=== PATIENT | female | born 1965 | race Caucasian/White ===

== ENCOUNTER 2022-06-17 15:46 | Emergency (ER) | payer BC ==
--- NOTE | 2022-06-17 15:58 | ED Physician Documentation ---
PD HPI DYSPNEA - Stated complaint Stated Complaint: SOA/ALLERGIC REACTION - Chief complaint Chief Complaint: Resp - History obtained from History obtained from: Patient - History of Present Illness Timing - onset: How many hours ago (1-2), Today Timing - onset during: Light activity (she was out in public area and a person was wearing very fragrant perfume, causing an asthma/wheezing episode in the patient. No hives nor swelling. So seems triggered bronchospasm as opposed to histamine mediated though patient says she does better with steroids and antihistamines with prior times.) Timing - duration: Hours (1-2) Timing - details: Abrupt onset, Still present Inciting event(s): Out of meds (usually would use ALbuterol MDI for this. Out of med. Here for neb treatment/Rx.) Improved by: Inhaler/neb Associated symptoms: Wheezing. No: Fever, Cough, Hemoptysis, Bilateral edema Similar symptoms before: Diagnosis (chemical sensitivity with astma/reactive airways.) Review of Systems Constitutional: denies: Fever, Chills Nose: denies: Rhinorrhea / runny nose, Congestion Throat: denies: Sore throat Cardiac: denies: Chest pain / pressure, Palpitations Respiratory: reports: Dyspnea, Wheezing. denies: Cough Skin: denies: Rash, Lesions Neurologic: denies: Near syncope PD PAST MEDICAL HISTORY - Past Medical History Cardiovascular: None Respiratory: Asthma Neuro: None Endocrine/Autoimmune: None - Present Medications Home Medications: Ambulatory Orders Medication Instructions Recorded Confirmed Albuterol Sulf [Ventolin Hfa 1 - 2 puffs INH Q4HR PRN #1 each 06/17/22 Inhaler] Cetirizine [ZyrTEC] 10 mg PO BID #15 tablet 06/17/22 dexAMETHasone [Decadron] 4 mg PO DAILY #5 tablet 06/17/22 - Allergies Allergies/Adverse Reactions: Allergies Allergy/AdvReac Type Severity Reaction Status Date / Time ketorolac [From Toradol] Allergy Anaphylaxis Verified 06/17/22 15:49 torsemide Allergy Respiratory Verified 06/17/22 15:49 PD ED PE NORMAL - Vitals Vital signs reviewed: Yes - General General: Alert and oriented X 3, Well developed/nourished, Other (appears in some distress with breathing, with tachypnea and decreased tidal volume. No accessory muscle use. Able to talk. ) - HEENT HEENT: Moist mucous membranes, Pharynx benign - Neck Neck: Supple, no meningeal sign, No adenopathy - Cardiac Cardiac: RRR (borderline tachycardic. ), No murmur - Respiratory Respiratory: No: Clear bilaterally (exp wheezing noted diffusely. No coarse sounds. ) - Abdomen Abdomen: Soft, Non tender - Derm Derm: Normal color, Warm and dry, No rash - Extremities Extremities: No edema, No calf tenderness / cord - Neuro Neuro: Alert and oriented X 3, No motor deficit, Normal speech Results - Vitals Vitals: Vital Signs - 24 hr 06/17/22 06/17/22 06/17/22 15:49 16:52 17:16 Temperature 36.5 C Heart Rate 100 114 H 116 H Respiratory 18 22 16 Rate Blood Pressure 180/90 H 211/87 H O2 Saturation 98 94 Oxygen O2 Source Room air PD Medical Decision Making - ED course Complexity details: re-evaluated patient (she is feeling better after nebulizer treatment. ), considered differential (seems RAD/asthma exac due to triggered ir ritation of perfume smell. She states treated in past with Albuterol and often short course steroids and anithistamines, seems to treat better and keep from being more prolonged improvement. ), d/w patient Departure - Departure Disposition: 01 Home, Self Care Clinical Impression: Exacerbation of asthma, Allergic reaction Condition: Stable Record reviewed to determine appropriate education?: Yes Prescriptions: Albuterol Sulf [Ventolin Hfa Inhaler] 1 - 2 puffs INH Q4HR PRN #1 each PRN Reason: Shortness Of Air/Wheezing dexAMETHasone [Decadron] 4 mg PO DAILY #5 tablet Cetirizine [ZyrTEC] 10 mg PO BID #15 tablet Comments: It is good that you are improved here with the nebulizer. I wrote a prescription for an albuterol inhaler so you will have 1 on hand. I would also suggest several days of dexamethasone steroid to help with airway inflammation related to the asthma flareup. Consider also cetirizine antihistamine once or twice daily for the next several days to week to help with the reaction as well. Stay well-hydrated. Continue your other usual medicines. Return if worsening. I sent your prescriptions to [facility] pharmacy. Discharge Date/Time: 06/17/22 17:26
[2022-06-17] MEDS ORDERED: DEXAMETHASONE 10 MG/ML VIAL PO STA (16:03)
[2022-06-17] MEDS ORDERED: ALBUTEROL NEB 2.5 MG/3 ML INH STA (16:03)
[2022-06-17] MEDS ORDERED: CETIRIZINE 10 MG TABLET PO STA (16:03)
[2022-06-17] MEDS ORDERED: CHERRY SYRUP 10 ML UDC PO ONE (16:03)
[2022-06-17 17:25] VITALS: BP 211/87
== END 2022-06-17 17:26 | disposition home or self-care (01) ==
LOC: ED 15:46
DX: T78.40XA Allergy, unspecified, initial encounter (principal); J45.901 Unspecified asthma with (acute) exacerbation
CPT/HCPCS: 94640; 94664; 99283; A9270

== ENCOUNTER 2022-07-30 07:56 | Outpatient (CLI) | payer BC ==
--- NOTE | 2022-07-30 15:56 | Ultrasound Report ---
PROCEDURE: Ankle Brachial Index INDICATIONS: BILATERAL LEG PAIN TECHNIQUE: Ankle-brachial indices were obtained bilaterally and recorded. COMPARISONS: None. FINDINGS: Right ankle brachial index (YULIYA): 1.1. Brachial pressure 160/86 and ankle pressure 189/80 Left ankle brachial index (YULIYA): 1.1 brachial pressure 153/71, ankle pressure 183/76. Healing potential: Ankle pressures >55 mm Hg in non-diabetics and >80 mm Hg in diabetics are likely to achieve primary h ealing of ischemic foot ulcers. Toe pressures >30 mm Hg are likely to achieve primary healing of ischemic foot ulcers, toe or transme tatarsal amputations. IMPRESSION: YULIYA as above, within normal limits. Reviewed by: Ariela Diallo MD on 07/30/2022 3:55 PM PDT Approved by: Ariela Diallo MD on 07/30/2022 3:55 PM PDT Station ID: [id number]
== END 2022-07-30 07:57 | disposition home or self-care (01) ==
LOC: DI 07:56
PROVIDERS: ATTEND Physician Assistant
DX: M79.604 Pain in right leg (principal); M79.605 Pain in left leg
CPT/HCPCS: 93922

== ENCOUNTER 2022-08-05 06:57 | Emergency (ER) | payer BC ==
--- NOTE | 2022-08-05 07:14 | ED Physician Documentation ---
PD HPI LOWER EXT INJURY - Stated complaint Stated Complaint: BILAT FOOT PX - Chief complaint Chief Complaint: Ext Problem - History obtained from History obtained from: Patient - History of Present Illness PD HPI LOW EXT INJURY LOCATION: Other (both feet, ankles, lower legs with tingling, burning, and sensitivity, with worse pain at times. 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 Pt has had trials of Duloxetine (side effects so stopped), Elavil (tried for couple months without improvement) for this. Has had improvement with Gabpentin but has had to increase doses and is at max/high dose now (2700 mg daily).) Review of Systems Skin: denies: Rash, Lesions Musculoskeletal: reports: Extremity swelling (will get edema in legs through the day.) Neurologic: reports: Numbness. denies: Focal weakness PD PAST MEDICAL HISTORY - Past Medical History Cardiovascular: None Respiratory: Asthma Neuro: None Endocrine/Autoimmune: Type 2 diabetes - Present Medications Home Medications: Ambulatory Orders Medication Instructions Recorded Confirmed Albuterol Sulf [Ventolin Hfa 1 - 2 puffs INH Q4HR PRN #1 each 06/17/22 Inhaler] Cetirizine [ZyrTEC] 10 mg PO BID #15 tablet 06/17/22 dexAMETHasone [Decadron] 4 mg PO DAILY #5 tablet 06/17/22 Alpha Lipoic Acid 600 mg PO DAILY #30 tablet 08/05/22 oxyCODONE [Roxicodone] 5 mg PO Q6H PRN #20 tablet 08/05/22 - Allergies Allergies/Adverse Reactions: Allergies Allergy/AdvReac Type Severity Reaction Status Date / Time ketorolac [From Toradol] Allergy Anaphylaxis Verified 08/05/22 07:12 torsemide Allergy Respiratory Verified 08/05/22 07:12 PD ED PE NORMAL - Vitals Vital signs reviewed: Yes - General General: Alert and oriented X 3, Well developed/nourished, Other (appears in pain due to lower legs.) - Derm Derm: Normal color, Warm and dry, Other (compression socks on, up to below knee. Left them on. Patient states no skin sores. ) - Extremities Extremities: No calf tenderness / cord - Neuro Neuro: Alert and oriented X 3, No motor deficit, Normal speech, Other (decreased sensation both feet/lower legs, but able to distinguish touch/pressure. Good movement of feet/toes. ) Results - Vitals Vitals: Vital Signs - 24 hr 08/05/22 07:10 Temperature 36.7 C Heart Rate 107 H Respiratory 19 Rate Blood Pressure 158/75 H O2 Saturation 99 Oxygen O2 Source Room air PD Medical Decision Making - ED course Complexity details: reviewed old records (she had outpt ABIs done few days ago, with normal results of YULIYA 1.1 in both lower estremities. ), considered differential (sounds like pain from neuropathy. Recent ABIs normal. No calf pain to palpation and no recent travel, etc. She describes some vasomotor type symptoms with cold/blue feet at times and exagerrated cold response (? Ca joshua). Has element of muscle pains too, and is on statin, which might contribute.) ED course: primary care has tried appropriate/good meds categories for neuropathy. Referencing UpToDate recommended after these to consider capsacian cream topical, alpha lipoic acid supplement, possibly B6 supplement, lido patch as adjuncts to the Gabapentin, TCA, SNRI meds. Pain meds not advised mcc, but I am script small amount for PRN/short term use given the degree of pain currently. Departure - Departure Disposition: 01 Home, Self Care Clinical Impression: Lower leg pain, Diabetic neuropathy Condition: Stable Record reviewed to determine appropriate education?: Yes Follow-Up: ARAMIS HOLLAND PA-C [Primary Care Provider] - Prescriptions: Alpha Lipoic Acid 600 mg PO DAILY #30 tablet oxyCODONE [Roxicodone] 5 mg PO Q6H PRN #20 tablet PRN Reason: Pain Comments: Continue with your gabapentin and other usual medicines. Add Tylenol 500 to 650 mg 4 times daily regularly for the next 7 to 10 days. To that add ibuprofen or naproxen occasionally if needed for pains. To that add oxycodone half to 1 tablet every 6 hours if needed for worse pain. It sounds like your provider has been trying appropriate medications with the duloxetine and amitriptyline to help with the neuropathy. Referencing up-to-date just now, other medications/supplements suggested could be topical capsaicin cream and also alpha lipoic acid may have some added benefit as well. Other considerations would be potential side effect to the cholesterol medicines ("statins") that can cause muscle aches and pains in the lower extremities in particular and also some neuropathy type symptoms. I would suggest holding off on your cholesterol medicine statin for a month or 2 and see if there is gene rally a difference. Regarding your cold feet and bluish color at times, sometimes it can be vasospasm. Discussed with your primary care potentially calcium joshua medications could be used for that. It will have an effect on your blood pressure to and sometimes can promote swelling in the legs so balancing effect and side effect. I sent your prescription to [facility] pharmacy. I am prescribing a short course of narcotic pain medication for you. These are potentially dangerous and addictive medications that should be used carefully. These medications may constipate you. Take an glal-jgl-eatexfe stool softener such as docusate twice daily with plenty of water while taking these medications. If you go 24 hours without a bowel movement, take [id number] MiraLAX, per package instructions. Do not drink or drive while taking these medications. If you received narcotic or sedating medications while in the emergency department do not drive for 24 hours. Store this medication in a safe, secure place and out of reach of children. It is a violation of federal law to give or sell this medication to another person or to use in a manner other than prescribed. The ED will not refill narcotic prescriptions, including prescriptions lost or stolen. You can dispose of unwanted medications at the [facility]'s office or at several pharmacies such as [facility].
[2022-08-05] MEDS ORDERED: ACETAMINOPHEN 500 MG TABLET PO STA (07:42)
[2022-08-05 08:14] VITALS: BP 139/76
== END 2022-08-05 08:14 | disposition home or self-care (01) ==
LOC: ED 06:57
DX: E11.42 Type 2 diabetes mellitus with diabetic polyneuropathy (principal)
CPT/HCPCS: 99282; 99283; A9270

== ENCOUNTER 2022-09-03 11:09 | Outpatient (CLI) | payer BC ==
--- NOTE | 2022-09-03 11:49 | Sleep Patient Instructions ---
Sleep Center Visit Summary - Patient Visit Information Reason for Visit: Initial consult for evaluation of sleep disordered breathing and other sleep issues. - Patient Instructions Instructions Attached: Sleep Study, Sleep Clinic Visit, Sleep Study Home Monitor Additional Instructions: You will be completing a sleep study, either an in-lab polysomnography (PSG) or home sleep study (HST). You will follow-up in the sleep care office after the sleep study is completed to hear the results and talk about therapy, if needed. You will be called by our office staff to schedule this appointment, but you may contact us with any questions. - Clinic Information Contact: [facility] [address] [place] [address] [email or web address] T: [phone]
--- NOTE | 2022-09-03 12:02 | SLEEP CARE CONSULTATION ---
Information from patient questionnaire entered by Radha Bentley. I have reviewed and concur with the information entered by Radha Bentley. This document represents the service I personally performed and the decisions made by me, Latosha Mann ARNP. History of Present Illness Service Date and Time: 09/03/2022 1109 Reason for Visit: New patient Chief Complaint: reports: Insomnia, Unrefreshed sleep, Excessive daytime sleepiness, Fatigue Date of Onset: INSOMNIA 20YRS OTHERS 1YR Usual bedtime: 10-11PM, lays down Time it takes to fall asleep: 1-2HRS Snores at night: No (only if congested) Observed to quit breathing while asleep: No Sleeps alone due to snoring: No Number of times waking at night: 1-2 Reasons for waking at night: reports: Pain, Other (UNKNOWN; tossing and turning). denies: Choking, Snoring, Gasping for air Toss, Turn, or Twitch while sleeping: Yes Recalls having dreams: Yes Usually gets out of bed at: 515 AM Feels refreshed in the morning: No Morning headache: Yes (1-2 times a week; last couple hours, will take tylenol if bad) Sleepy or fatigued during the day: Yes Ever fallen asleep while driving: Yes (some drowsy driving; no accidents) Takes day naps: Yes (20 mins on lunch break on work days; off work 1-2 hours) Dreams during day naps: No Prior sleep studies: No Additional HPI information: I had the pleasure of seeing EDUARDO PALM today regarding the possibility of her having a sleep disorder. Her current complaints are excessive daytime sleepiness, fatigue, insomnia and unrefreshed sleep. She states she is tired all the time. She states in the past she has had insomnia where she could not fall asleep until later in the evening and she has always been a night person. She will still take 1-2 hours to fall asleep after laying down. She then wakes up 1- 2 times a night, mostly due to pain in legs or physical discomfort. She moves a lot at night and will wake up with her blankets and pillows "all over the room". She states she moved here to help her mother who has early Alzheimer's dementia and that this has increased her stress. She is also working. She states recently she just cannot wake up feeling rested and is tired throughout the day. She states she has never been told that she snores unless she is congested. She has never been told that she has any pauses in breathing. She does talk in her sleep and recently started walking in her sleep. She states she has not left the room but has found herself in the closet or in a corner of her bedroom. She also has had sleep paralysis once or twice a year. She deals with a lot of pain and paresthesias in both of her legs after spinal fusion surgery x2. Her legs are restless throughout the day and get very cold at night. She has to wear 2 pairs of socks and uses a heated blanket, even in the summer, to keep her legs and feet warm. - Parasomnia Symptoms Ever been unable to move upon waking from sleep: Yes (couple times as youth after vivid dreaming; 1-2 times year now) Walks in sleep: Yes (1st time in last year, did not leave room) Talks in sleep: Yes Ever acted out dreams in sleep: No (don't know; does kick covers off from moving a lot at night) Ever felt weak in the knees when startled or emotional: No Bothered by creepy, crawly, restless sensations in legs: Yes (legs/feet discomfort - daily during the day too) Problems with memory or concentration: Yes (memory more recently) Subjective Initial [place] Sleepiness Scale score: 10 (09/03/22) Past Medical History Past Medical History: reports: Hypertension, Diabetes, Insulin resistance, Asthma, Depression, Other (back fusion and then redo) Social History 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 Patient is Single and lives in . Have you smoked in the past 12 months: No Years of smokin Quit date: 1992 Alcohol use: Yes Alcohol amount and frequency: VERY RARELY Caffeine use: Yes Caffeine amount and frequency: 1-2 sodas DAY Family History Family history of sleep disordered breathing: No Allergies and Home Medications Known drug allergies: Yes (ketorolac, torsemide) Drug allergies reviewed: Yes Home medication list reviewed: Yes (see updated list in EMR) Allergy and home medication list: Allergies ketorolac [From Toradol] Allergy (Verified 09/02/22 15:05) Anaphylaxis torsemide Allergy (Verified 09/02/22 15:05) Respiratory Review of Systems Weight gain over past 5 years: 7-10 Cardiovascular: reports: high blood pressure Gastrointestinal: reports: nausea, diarrhea. denies: heartburn Psychiatric: denies: anxiety, depression Ear/Nose/Throat: reports: nasal congestion, sinus problems, dry mouth/throat, wisdom teeth removed. denies: tonsillectomy Endocrine: reports: sluggishness, excessive thirst Musculoskeletal: reports: joint pain, back pain, muscle pain or cramping Immunologic: reports: sneezing, itching Physical Exam Vital signs obtained and entered by: RADHA De Jesus MA Blood Pressure: 138/82 (LEFT ARM) Cuff size: regular Heart Rate: 112 O2 Saturation: 97 Height: 5 ft 6 in Weight: 237 lb 3.2 oz Body Mass Index: 38.2 BMI Classification: Obese Neck circumference: 16.75 Mouth and throat: narrow oropharynx Soft palate: long Hard palate: normal Uvula: normal Uvula visualization: 25% Mallampati Class III Tongue: enlarged in size with teeth zapata on lateral edges Tonsils: small Neck: normal w/o lymphadenopathy or thyromegaly Heart: regular rate and rhythm Lungs: clear bilaterally Impression and Plan 1. Suspected Obstructive Sleep Apnea-Hypopnea Syndrome, as suggested by a history of insomnia, morning headache, unrefreshed sleep, cognitive impairment, and excessive daytime sleepiness. Narrow oropharynx and obesity are common predisposing factors for obstructive sleep apnea-hypopnea syndrome. I recommend proceeding to polysomnography to confirm the diagnosis and to assess severity. If the patient has significant sleep disordered breathing, a manual CPAP titration study will also be performed to find the optimal treatment pressure. I informed the patient of what the sleep studies involve and after some discussion, obtained agreement to proceed. The pathophysiology of obstructive sleep apnea-hypopnea syndrome was discussed with the patient and health risks of cardiovascular and cerebrovascular disease if not treated. Risks of drowsy driving discussed in detail and patient advised to avoid long distance driving and to pullman car repairer at the first sign of drowsiness. Patient agreed to plan. * Schedule polysomnography . * Avoid long distance driving or driving when feeling sleepy. * Avoid alcohol, sedative and muscle relaxant around bedtime. * Attempt to lose weight. * Review instructions provided by trained office staff on how to prepare for the sleep study. * Return for follow-up after sleep study completed. Counseling Topics: Weight loss health impact Visit Type: In Office Time Spent with Patient (minutes): 33 Provider Statement: I spent 100% of the Face to Face Visit with the patient with greater than 50% spent counseling the patient and coordination of care.
[2022-09-03 12:06] VITALS: BP 138/82
== END 2022-09-03 11:10 | disposition home or self-care (01) ==
LOC: SC 11:09
PROVIDERS: ATTEND Nurse Practitioner Family
DX: G47.10 Hypersomnia, unspecified (principal); G47.00 Insomnia, unspecified; R51.9 Headache, unspecified; G47.8 Other sleep disorders; R41.89 Other symptoms and signs involving cognitive functions and awareness; E66.9 Obesity, unspecified; Z68.38 Body mass index [BMI] 38.0-38.9, adult; G25.81 Restless legs syndrome; Z87.891 Personal history of nicotine dependence
CPT/HCPCS: 99203; 99212

== ENCOUNTER 2022-11-24 07:38 | Outpatient (CLI) | payer BC | END 2022-11-24 23:59 | disposition critical access hospital (66) | LOC: EMS 07:38 | DX: R42 Dizziness and giddiness (principal); R11.0 Nausea; R51.9 Headache, unspecified | CPT/HCPCS: A0425; A0427 ==

== ENCOUNTER 2022-11-24 08:23 | Emergency (ER) | payer BC ==
[2022-11-24 08:40] VITALS: BP 161/83; O2SAT 95
[2022-11-24] MEDS ORDERED: ONDANSETRON 4 MG/2 ML VIAL IVP STA (08:47)
[2022-11-24] MEDS ORDERED: SODIUM CHLORIDE 0.9% 1,000 ML IV STA (08:47)
[2022-11-24] MEDS ORDERED: MECLIZINE 12.5 MG TABLET PO STA (08:48)
[2022-11-24 09:10] LABS: BASOPHILS # (AUTO) 0.1 10^3/uL (0.0-0.1); BASOPHILS % (AUTO) 1.3 %; EOSINOPHILS # (AUTO) 0.2 10^3/uL (0.0-0.7); EOSINOPHILS % (AUTO) 2.3 %; HCT - HEMATOCRIT 42.1 % (37.0-47.0); HGB - HEMOGLOBIN 13.2 g/dL (12.0-16.0); LYMPHOCYTES # (AUTO) 2.9 10^3/uL (1.5-3.5); LYMPHOCYTES % (AUTO) 32.1 %; MEAN CORPUSCULAR HEMOGLOBIN 26.5 pg (27.0-31.0); MEAN CORPUSCULAR HGB CONC 31.4 g/dL (32.0-36.0); MEAN CORPUSCULAR VOLUME 84.4 fL (81.0-99.0); MEAN PLATELET VOLUME 10.2 fL (7.9-10.8); MONOCYTES # (AUTO) 0.6 10^3/uL (0.0-1.0); NEUTROPHILS # (AUTO) 5.1 10^3/uL (1.5-6.6); PLT - PLATELET COUNT 432 10^3/uL (130-450); RED BLOOD COUNT 4.99 10^6/uL (4.20-5.40); RED CELL DISTRIBUTION WIDTH 13.7 % (12.0-15.0)
[2022-11-24 09:26] LABS: ALBUMIN/GLOBULIN RATIO 1.7 (1.0-2.2); BILIRUBIN,TOTAL 0.3 mg/dL (0.2-1.0); CALCIUM 9.7 mg/dL (8.5-10.3); CREATININE 0.6 mg/dL (0.6-1.3); POTASSIUM 4.1 mmol/L (3.5-4.5); TOTAL PROTEIN 6.4 g/dL (6.4-8.9)
--- NOTE | 2022-11-24 09:26 | ED Physician Documentation ---
History of Present Illness - Stated complaint Stated Complaint: DIZZY/NAUSEA - Chief complaint Chief Complaint: Neuro - History obtained from History obtained from: Patient - Additonal information Additional information: Patient is a 57-year-old female with a history of hypertension and diabetes presenting for evaluation of dizziness with nausea. Patient reports feeling room spinning sensation and off-balance starting around 730 last night as she was on the phone with a customer service advocate. She reports associated nausea but no vomiting. She has had a right-sided headache for the past 10 days that feels like a lot of pressure. She denies any head injury and does not take a blood thinner. No recent illness. Denies fever, chest pain, shortness of air or abdominal symptoms. Denies numbness or weakness in her arms or legs. Denies a prior history of vertigo. Review of Systems Constitutional: denies: Fever Cardiac: denies: Chest pain / pressure Respiratory: denies: Dyspnea GI: reports: Nausea. denies: Abdominal Pain, Vomiting, Diarrhea Musculoskeletal: denies: Back pain Neurologic: reports: Headache. denies: Syncope PD PAST MEDICAL HISTORY - Past Medical History Cardiovascular: None Respiratory: Asthma Neuro: None Endocrine/Autoimmune: Type 2 diabetes - Past Surgical History Past Surgical History: No - Present Medications Home Medications: Ambulatory Orders Medication Instructions Recorded Confirmed Albuterol Sulf [Ventolin Hfa 1 - 2 puffs INH Q4HR PRN #1 each 06/17/22 09/03/22 Inhaler] Albuterol Sulf [Ventolin Hfa See Rx Instructions .ROUTE .COMPLEX 09/03/22 09/03/22 Inhaler] Aspirin [[place]az[place]] See Rx Instructions .ROUTE .COMPLEX 09/03/22 09/03/22 Gabapentin [Neurontin] See Rx Instructions .ROUTE .COMPLEX 09/03/22 09/03/22 Losartan [Cozaar] See Rx Instructions .ROUTE .COMPLEX 09/03/22 09/03/22 Metformin HCl [Metformin ER See Rx Instructions .ROUTE .COMPLEX 09/03/22 09/03/22 Gastric] diphenhydrAMINE [Benadryl] See Rx Instructions .ROUTE .COMPLEX 09/03/22 09/03/22 Meclizine HCl [Motion Sickness] 25 mg PO Q6H PRN #20 tablet 11/24/22 Ondansetron Odt [Zofran] 4 mg TL Q6H PRN #10 tablet 11/24/22 - Allergies Allergies/Adverse Reactions: Allergies Allergy/AdvReac Type Severity Reaction Status Date / Time ketorolac [From Toradol] Allergy Anaphylaxis Verified 09/03/22 11:14 torsemide Allergy Respiratory Verified 09/03/22 11:14 - Social History Does the pt smoke?: No Smoking Status: Never smoker Does the pt drink ETOH?: No Does the pt have substance abuse?: No - Immunizations Immunizations are current?: Yes PD ED PE NORMAL - General General: Alert and oriented X 3, No acute distress, Well developed/nourished, Other - HEENT HEENT: Atraumatic, PERRL, EOMI, Moist mucous membranes, Pharynx benign - Neck Neck: Supple, no meningeal sign - Cardiac Cardiac: RRR, No murmur - Respiratory Respiratory: No respiratory distress, Clear bilaterally - Abdomen Abdomen: Soft, Non tender, Non distended - Derm Derm: Warm and dry - Neuro Neuro: Alert and oriented X 3, portfolio administrator 2-12 intact, No motor deficit, No sensory deficit, Normal speech, Other (Normal dqtqgr-[id number] bilaterally) Results - Vitals Vitals: Vital Signs - 24 hr 11/24/22 08:31 Temperature 37 C Heart Rate 88 Respiratory 18 Rate Blood Pressure 161/83 H O2 Saturation 95 Oxygen O2 Source Room air - EKG (time done) 0918 EKG releavant findings:: EKG personally interpreted by author of this note. Relevant findings are: Rate 83, normal sinus rhythm, PVCs, no STEMI, T wave inversions in lateral leads - Labs Labs: Laboratory Tests 11/24/22 11/24/22 09:05 09:05 WBC 9.0 RBC 4.99 Hgb 13.2 Hct 42.1 MCV 84.4 MCH 26.5 L MCHC 31.4 L RDW 13.7 Plt Count 432 MPV 10.2 Neut # (Auto) 5.1 Lymph # (Auto) 2.9 Mccone # (Auto) 0.6 Eos # (Auto) 0.2 Baso # (Auto) 0.1 Absolute Nucleated RBC 0.00 Nucleated RBC % 0.0 Sodium 141 Potassium 4.1 Chloride 106 Carbon Dioxide 28 Anion Gap 7.0 BUN 9 Creatinine 0.6 Estimated GFR (MDRD) 103 Glucose 112 H Calcium 9.7 Total Bilirubin 0.3 AST 16 ALT 17 Alkaline Phosphatase 56 Total Protein 6.4 Albumin 4.0 Globulin 2.4 Albumin/Globulin Ratio 1.7 Lipase 18 PD Medical Decision Making - ED course Complexity details: reviewed results, re-evaluated patient, d/w patient ED course: Patient is a 57-year-old female presenting for evaluation of vertigo symptoms a long with a headache. Vertigo started last night, headache has been present for 10 days. Nonfocal neuro exam. Normal [id number]. Vital signs appear stable. EKG is reviewed and nonischemic. No chest pain to suggest ACS. CBC, chemistries were obtained and reviewed. Given history of hypertension and diabetes she does have some risk factors for stroke so CT angio head and neck were obtained. There is no signs of intracranial hemorrhage or large vessel occlusion or stenosis.No nuchal rigidity to suggest subarachnoid hemorrhage. Patient was given IV fluids, Zofran and meclizine with some improvement in her symptoms but still ongoing dizziness. Therefore an MRI was ordered which is negative for a stroke. Patient feeling better after Valium and is able to ambulate. Suspect that her vertigo is from a peripheral etiology. Discussed continued treatment plan as well as need for follow-up with primary care provider. Patient is counseled on concerning symptoms to return for. Departure - Departure Disposition: 01 Home, Self Care Clinical Impression: Vertigo, Headache, Thyroid enlargement Condition: Stable Instructions: ED Headache Migraine, ED Vertigo Unspecified Prescriptions: Meclizine HCl [Motion Sickness] 25 mg PO Q6H PRN #20 tablet PRN Reason: Dizziness Ondansetron Odt [Zofran] 4 mg TL Q6H PRN #10 tablet PRN Reason: Nausea / Vomiting Comments: You were evaluated today for vertigo-like symptoms. Because of your history of hypertension and diabetes we did also evaluate you for a stroke with CT scan and MRIs. At this time there is no signs of a stroke as the cause of your symptoms. There was an incidental finding on your CT scan showing a mildly enlarged thyroid gland that needs follow-up with an outpatient ultrasound. I am sending prescriptions for medications to help you with your vertigo to [facility] in [place]. Please return to the emergency department with any worsening symptoms. You need an outpatient ultrasound to evaluate for a mildly enlarged thyroid gland. Incidentally noted is mildly enlarged thyroid gland with heterogeneous enhancement which could represent nodular goiter. Outpatient ultrasound thyroid follow-up is recommended. Forms: PCP List, Activity restrictions Discharge Date/Time: 11/24/22 13:23
--- NOTE | 2022-11-24 10:37 | CT Report ---
PROCEDURE: CT Angio Head/Neck INDICATIONS: R sided headache 10 days/ dizzy > 12 hrs TECHNIQUE: After the administration of intravenous contrast, 1 mm thick sections acquired from the aortic arch t hrough the [place]. 3-dimensional vfeikkb-rxhkiehwf-gwwbplixbm (MIP) and/or volume renderin g reformats were acquired of the central intracranial vasculature and neck separately. For radiation dose reduction, the following was used: automated exposure control, adjustment of mA and/or kV acco rding to patient size. COMPARISON: None. FINDINGS: Image quality: Diagnostic. HEAD CT: CSF Spaces: Basal cisterns are patent. No extra-axial fluid collections. Ventricles are normal in size and shape. Brain: The brain is within normal limits for age and scanning technique. No area of abnormal intrao sseous enhancement is seen. Skull and face: Calvarium and visualized facial bones appear intact, without suspicious lesions. Sinuses: Visualized sinuses and mastoids are clear. HEAD CT ANGIOGRAPHY: Anterior circulation: Intracranial internal carotid arteries are normal in size and flow. The flow within the paired anterior cerebral arteries is normal and symmetric. The flow within the middle cer ebral arteries is normal and symmetric. The anterior communicating artery is seen. No aneurysms are seen. Posterior circulation: Visualized portions of the vertebral arteries demonstrate normal caliber, and join to form a normal appearing basilar artery. Flow within the posterior cerebral arteries is norm al and symmetric. No aneurysms are seen. NECK CT ANGIOGRAPHY: Carotid system: The great vessels demonstrate a conventional anatomy as they arise from the aortic a rch. The origins of the common carotid arteries appear patent. The common carotid arteries demonstr ate normal caliber and courses. The bifurcation regions are both widely patent. The internal caroti d arteries demonstrate normal calibers and courses. Posterior circulation: The origins of the vertebral arteries both appear widely patent. The more childs perior extracranial portions of both vertebral arteries also demonstrate normal courses and calibers. They join to form a normal appearing basilar artery. Soft tissues: Visualized neck soft tissues demonstrate no suspicious abnormalities. Thyroid gland i s mildly enlarged and show heterogeneous contrast enhancement. Bones: No suspicious bony lesions. Visualized cervical spine appears normally aligned. IMPRESSION: 1. No CT evidence of acute intracranial bleed, midline shift or mass effect. No area of abnormal intr acranial enhancement. 2. No hemodynamically significant stenosis or aneurysm is seen in the intracranial circulation. 3. No hemodynamically significant stenosis or aneurysm is seen in bilateral neck arteries. 4. Incidentally noted is mildly enlarged thyroid gland with heterogeneous enhancement which could rep resent nodular goiter. Outpatient ultrasound thyroid follow-up is recommended. The estimate of stenosis included in the report of the imaging study was calculated using the NASCET method Reviewed by: Gordy Lehman MD on 11/24/2022 10:35 AM PDT Approved by: Gordy Lehman MD on 11/24/2022 10:35 AM PDT Station ID: [id number]
[2022-11-24] MEDS ORDERED: diazePAM 5 MG TABLET PO STA (10:52)
[2022-11-24] MEDS ORDERED: ACETAMINOPHEN 500 MG TABLET PO STA (10:53)
--- NOTE | 2022-11-24 12:38 | MRI Report ---
PROCEDURE: BRAIN WO INDICATIONS: intractable dizziness TECHNIQUE: Noncontrast axial T1 spin echo, axial T2 fast spin echo, sagittal and axial FLAIR, coronal T2 fast sp in echo, axial gradient echo, axial diffusion and ADC through the brain. COMPARISON: CTA head and neck dated 11/24/2022. FINDINGS: Image quality: Excellent. CSF Spaces: Basal cisterns are patent. No extra-axial fluid collections. Ventricles are normal in size and shape. Brain: No intracranial masses or hemorrhage. Hay/white matter interface is normal. Brainstem appe ars normal. Diffusion-weighted images demonstrate no acute ischemic insult. No chronic ischemic ins ults. There are very minimal tiny foci of increased T2 signal noted in deep white matter structures. Normal intravascular flow voids are present. Skull and face: Calvarium has normal marrow signal. Orbits appear normal. Sinuses: Sinuses and mastoids are clear. IMPRESSION: Negative brain MRI for patient age. No acute intracranial process. Reviewed by: Arias Portillo MD on 11/24/2022 12:36 PM PDT Approved by: Arias Portillo MD on 11/24/2022 12:36 PM PDT Station ID: [id number]
[2022-11-24] MEDS ORDERED: iohexoL-300 100 ML VIAL IVP ONE (13:08)
== END 2022-11-24 13:23 | disposition home or self-care (01) ==
LOC: EDUNIT# → SUPCPDRO 08:23 → ED 08:23
DX: R42 Dizziness and giddiness (principal); R51.9 Headache, unspecified; E04.9 Nontoxic goiter, unspecified; I10 Essential (primary) hypertension; E11.9 Type 2 diabetes mellitus without complications; Z79.84 Long term (current) use of oral hypoglycemic drugs
CPT/HCPCS: 36415; 70496; 70498; 70551; 80053; 83690; 85025; 93005; 96374; 99284; A9270; Q9967

== ENCOUNTER 2022-12-10 14:24 | Outpatient (CLI) | payer BC ==
--- NOTE | 2022-12-10 16:43 | Ultrasound Report ---
PROCEDURE: Head or Neck Soft Tissue INDICATIONS: GOITER TECHNIQUE: Real-time scanning was performed of the thyroid gland, with image documentation. COMPARISON: None FINDINGS: Right: Thyroid lobe measures 4.7 x 2.0 x 2.1 cm, and is heterogeneous in echotexture. Left: Thyroid lobe measures 5.4 x 2.0 x 2.0 cm, and is heterogeneous in echotexture. Isthmus: 5 mm thick. Nodule number: One Location: Right midpole Size: 1.2 cm. Composition: Predominantly solid. Echogenicity: Hypoechoic. Shape: wider than tall (0 points). Margins: Ill-defined. Echogenic foci: None (0 points). Total points: 4 ACR TI-RADS category: 4 Nodule number: Two Location: Right inferior pole Size: 1.0 cm. Composition: Solid. Echogenicity: Hypoechoic. Shape: wider than tall (0 points). Margins: Smooth (0 points). Echogenic foci: Macrocalcifications. Total points: 5 ACR TI-RADS category: 4 Nodule number: Three Location: Left lower pole Size: 0.9 cm. Composition: Solid. Echogenicity: Mixed. Shape: wider than tall (0 points). Margins: Smooth (0 points). Echogenic foci: None (0 points). Total points: 3 ACR TI-RADS category: 3 Nodule number: Four Location: Left midpole Size: 1.7 x 2.3 x 1.4 cm. Composition: Solid. Echogenicity: Isoechoic to hypoechoic. Shape: wider than tall (0 points). Margins: Ill-defined. Echogenic foci: Punctate. Total points: 6 ACR TI-RADS category: 4 IMPRESSION: 1. Heterogeneous thyroid gland with several nodules. 2. Given ACR criteria, several nodules are moderately suspicious. FNA is recommended of nodule #4. ACR TI-RADS definitions and recommendations: TI-RADS 1 (benign): 0 points. FNA not needed. TI-RADS 2 (not suspicious): 2 points. FNA not needed. TI-RADS 3 (mildly suspicious): 3 points. "FNA if 2.5 cm or larger, follow up if 1.5 cm or larger (at 1, 3, and 5 years). TI-RADS 4 (moderately suspicious): 4-6 points. "FNA if 1.5 cm or larger, follow up if 1 cm or larger (at 1, 2, 3, and 5 years). TI-RADS 5 (highly suspicious): 7 points or more. "FNA if 1 cm or larger, follow up if 0.5 cm or larger (every year for 5 years). Reviewed by: Cici Yoder MD on 12/10/2022 4:41 PM PDT Approved by: Cici Yoder MD on 12/10/2022 4:41 PM PDT Station ID: [id number]
== END 2022-12-10 14:25 | disposition home or self-care (01) ==
LOC: DI 14:24
PROVIDERS: ATTEND Physician Assistant
DX: E04.2 Nontoxic multinodular goiter (principal)

== ENCOUNTER 2022-12-24 14:00 | Outpatient (CLI) | payer BC ==
[2022-12-24] MEDS ORDERED: LIDOCAINE-MPF 1% 5 ML VIAL ONE (14:22)
--- NOTE | 2022-12-24 16:56 | Ultrasound Report ---
PROCEDURE: FNA Bx w/US Gdn 1st Les INDICATIONS: THYROID NODULES TECHNIQUE: The indications, alternatives, benefits, risks, and complications of the procedure were explained to the patient. Written informed consent was obtained and placed in the chart. The area of interest wa s examined sonographically and a site was chosen for ultrasound guided percutaneous sampling. The sk in was prepared and draped in the usual fashion, and anesthetized with 1% lidocaine infiltrated from the skin down to the lesion. Multiple passes were then performed, with contents emptied into an appr [facility] pathology specimen container. A bandage was applied to the area of access at completion of t he study. COMPARISON: Thyroid ultrasound 12/10/2022. FINDINGS: Location(s) of lesion(s) sampled: Left thyroid nodule #4 on ultrasound 12/10/2022 Odon: 25 gauge hypodermic needles. Number of passes: 6 Medications: 1% lidocaine for local anaesthesia. Complications: None. IMPRESSION: Successful ultrasound-guided left thyroid nodule fine needle aspiration, with cytology results antonina varela Reviewed by: Eve Hassan MD on 12/24/2022 4:55 PM PST Approved by: Eve Hassan MD on 12/24/2022 4:55 PM PST Station ID: [id number]
[2022-12-24] MEDS ORDERED: LIDOCAINE-MPF 1% 5 ML VIAL TD ONE (17:29)
== END 2022-12-24 14:01 | disposition home or self-care (01) ==
LOC: DI 14:00
PROVIDERS: ATTEND Family Medicine
DX: E04.2 Nontoxic multinodular goiter (principal)
CPT/HCPCS: 10005

== ENCOUNTER 2023-05-03 17:45 | Outpatient (CLI) | payer BC | END 2023-05-03 17:46 | disposition home or self-care (01) | LOC: LAB 17:45 | PROVIDERS: ATTEND Physician Assistant | DX: E04.2 Nontoxic multinodular goiter (principal) | CPT/HCPCS: 36415; 84443 ==

== ENCOUNTER 2023-06-12 11:41 | Outpatient (CLI) | payer BC ==
--- NOTE | 2023-06-12 16:37 | Ultrasound Report ---
PROCEDURE: Soft Tissue Head or Neck INDICATIONS: RIGHT THYROID NODULE TECHNIQUE: Real-time scanning was performed of the thyroid gland, with image documentation. COMPARISON: 12/10/2022 FINDINGS: Right: Thyroid lobe measures 5.2 x 1.8 x 2.5 cm. Left: Thyroid lobe measures 5.6 x 1.8 x 2.2 cm Isthmus: 0.4 cm thick. Echotexture: Homogeneous. Nodule 1: Right mid region. 1.4 x 1.3 x 1 cm, slightly larger than prior. Solid and hypoechoic echote xture. TR 4. Follow-up is recommended. Nodule 2: Right inferior region. 1.3 x 0.9 x 1.1 cm, slightly larger than prior. Solid and hypoechoic with macrocalcifications. TR 4. Follow-up is recommended. Nodule 3: Left mid region. 1.8 x 1.4 x 1.6 cm, previously sampled (labeled as nodule #4). It is solid and hypoechoic with macrocalcifications. TR 4. Nodule 4: Left inferior region. 1.7 x 1.2 x 1.4 cm, more conspicuous than prior. It is solid and hypo echoic with macrocalcifications. TR 4. IMPRESSION: Follow-up is recommended for the right-sided nodules as described above. There are 2 left-sided nodule that meet criteria for sampling. Nodule 3 (previously labeled as #4) wa s sampled. Nodule 4 today is more conspicuous than prior and also meets criteria for sampling. ACR TI-RADS definitions and recommendations: TI-RADS 1 (benign): 0 points. FNA not needed. TI-RADS 2 (not suspicious): 2 points. FNA not needed. TI-RADS 3 (mildly suspicious): 3 points. "FNA if 2.5 cm or larger, follow up if 1.5 cm or larger (at 1, 3, and 5 years). TI-RADS 4 (moderately suspicious): 4-6 points. "FNA if 1.5 cm or larger, follow up if 1 cm or larger (at 1, 2, 3, and 5 years). TI-RADS 5 (highly suspicious): 7 points or more. "FNA if 1 cm or larger, follow up if 0.5 cm or larger (every year for 5 years). Reviewed by: Chandrakant Rosenthal MD on 06/12/2023 4:35 PM PDT Approved by: Chandrakant Rosenthal MD on 06/12/2023 4:35 PM PDT Station ID: [id number]
== END 2023-06-12 11:42 | disposition home or self-care (01) ==
LOC: DI 11:41
PROVIDERS: ATTEND Family Medicine
DX: E04.2 Nontoxic multinodular goiter (principal)